=== PATIENT | male | born 1955 | race Caucasian/White ===

== ENCOUNTER 2019-10-18 09:43 | Day surgery (SDC) | payer OTHER ==
[2019-10-18 10:16] VITALS: BMI 31.2
[2019-10-18] MEDS ORDERED: MIDAZOLAM HCL 2 MG/2 ML SINGLE DOSE VIAL ONE ×2 (11:00)
[2019-10-18] MEDS ORDERED: PROPOFOL 20 ML ONE ×2 (11:01)
[2019-10-18] MEDS ORDERED: VANCOMYCIN 1,000 MG VIAL (RESTRICTED TO ID ONLY) ONE (11:16)
[2019-10-18] MEDS ORDERED: VANCOMYCIN 500 MG VIAL (RESTRICTED TO ID ONLY) IVPB ONE (11:20)
[2019-10-18] MEDS ORDERED: oxyCODONE HCL 5 MG TABLET PO PRN ×2 (11:56→12:31)
--- NOTE | 2019-10-18 11:59 | OP ---
Operative Note - Note: Operative Date: 10/18/19 Pre-Operative Diagnosis: BPH/retention/CAP Post-Operative Diagnosis: Same as Pre-op Surgeon: Cal Ledesma Anesthesia: Spinal Specimens Removed: prostate chips Operative Report Dictated: Yes
[2019-10-18] MEDS ORDERED: DEXTROSE 5%-0.45% SALINE 1,000 ML IV SCH (12:00)
--- NOTE | 2019-10-18 12:22 | OP ---
DATE OF OPERATION: 10/18/2019 PREOPERATIVE DIAGNOSIS: Benign prostatic hypertrophy with retention and prostate cancer. POSTOPERATIVE DIAGNOSIS: Benign prostatic hypertrophy with retention and prostate cancer. PROCEDURE: Cystoscopy, bipolar transurethral resection and vaporization of prostate. SURGEON: Berenice Le MD INDICATIONS: Patient is a 64-year-old male with BPH, urinary retention, and locally advanced prostate cancer causing urinary retention. After failed voiding trial with medical therapy after reviewing treatment options, patient elected to undergo bipolar transurethral vaporization and resection of prostate. Risks and benefits were discussed at length including bleeding, infection, impotence, incontinence, stricture formation, potential persistent retention, potential need for additional procedures. DESCRIPTION OF PROCEDURE: After informed consent was obtained, patient was taken to the OR, placed supine on the operating room table. With cardiac monitoring administered, the spinal anesthetic was given. He was prepped and draped in dorsal lithotomy position. The pre-existing Escobar catheter was removed, and the 26 sheath resectoscope with visual obturator was inserted into urethra without difficulty. Entry reveals a normal prostatic urethra 3 cm and visually occlusive. There is no significant median bar tissue. The bladder was visualized. No tumors or stones noted in the bladder. Bilateral ureteral orifice was seen in the normal anatomic position. At this point then using the loop, the prostate tissue was resected circumferentially. The lateral lobe tissue was resected starting at the bladder neck and ending just proximal to the verumontanum. There was no resection pass in the verumontanum to minimize the chance of incontinence. Once the prostate chips were removed with Ellik evacuator, the residual lateral tissue was then vaporized with the vapor electrode until a wide open channel was created. With the resectoscope situated just past the verumontanum, wide open channel was noted into the bladder. There was no injury to the bladder or ureteral orifice. There was bilateral efflux. All prostate chips were removed with the Ellik evacuator and sent to Pathology for analysis. Resectoscope was then removed, and a 22-Urdu Escobar was then placed to straight drainage. Hasty-tinged urine was retrieved. Patient was awoken from anesthesia and transferred to recovery room in stable condition. There were no complications. Estimated blood loss was minimal. BERENICE LE M.D. [id number]
[2019-10-18] MEDS ORDERED: ONDANSETRON 4 MG/2 ML VIAL IVPUSH PRN ×2 (12:31→13:34)
[2019-10-18] MEDS ORDERED: LACTATED RINGERS SOLUTION 1,000 ML IV SCH ×2 (12:45→13:45)
[2019-10-18 15:06] VITALS: TEMP 97.6
[2019-10-18 16:44] VITALS: BP 129/74; PULSE 61
--- NOTE | 2019-10-22 16:22 | PATH ---
Surgical Pathology Report Patient Name: DAVID LUIS [facility]. Rec. #: [id number] /Age/Gender: 1955 (Age: 64) / M Account: [id number] Location: [facility] SURGICAL Taken: 10/18/2019 Received: 10/18/2019 Reported: 10/22/2019 Physicians: Cal Ledesma M.D. Specimen(s) Received PROSTATE CHIPS Clinical History Prostate cancer, urinary retention Final Diagnosis PROSTATE CHIPS, TRANSURETHRAL RESECTION OF PROSTATE: BENIGN PROSTATIC TISSUE WITH FOCAL ACUTE AND CHRONIC INFLAMMATION, ATROPHY, CYSTIC CHANGES, GLANDULAR AND STROMAL HYPERPLASIA. Electronically Signed Edwige Kimbrough M.D. Gross Description Received in formalin labeled "prostate chips," is a 6 g, 0.0 x 4.5 x 0.6 cm aggregate of meza, firm to rubbery portions of tissue, consistent with prostate chips. The specimen is entirely submitted in 6 cassettes. 10/19/201910/19/2019
== END 2019-10-18 16:50 | disposition home or self-care (01) ==
LOC: JASU-SURG 09:43
PROVIDERS: ATTEND Urology
PROC: 0V508ZZ Destruction of Prostate, Via Natural or Artificial Opening Endoscopic (ICD-10-PCS; principal; 2019-10-18 11:30)
DX: C61 Malignant neoplasm of prostate (principal); N40.1 Benign prostatic hyperplasia with lower urinary tract symptoms; R33.8 Other retention of urine
CPT/HCPCS: 88305-TC; 94760